=== PATIENT | female | born 1980 | race Hispanic/Latino ===

== ENCOUNTER 2017-02-01 18:24 | Emergency (ER) | payer SELFPAY ==
[2017-02-01] MEDS ORDERED: diphenhydrAMINE 50 MG/ML VIAL ONE (20:18)
[2017-02-01] MEDS ORDERED: Metoclopramide HCl 10 MG/2 ML VIAL ONE (20:18)
[2017-02-01] MEDS ORDERED: Lidocaine 4% Cream 5 GM TUBE w/ Tegaderm ONE (21:00)
== END 2017-02-01 22:38 | disposition home or self-care (01) ==
LOC: ERS 18:24
DX: R51 Headache (principal); F32.9 Major depressive disorder, single episode, unspecified; F41.9 Anxiety disorder, unspecified; L40.9 Psoriasis, unspecified
CPT/HCPCS: 96374; 96375; J1200; J2765

== ENCOUNTER 2017-03-21 13:11 | Outpatient (CLI) | payer MEDICAID | END 2017-03-21 13:12 | disposition home or self-care (01) | LOC: BICULT 13:11 | PROVIDERS: ATTEND Nurse Practitioner Women's Health | DX: R10.2 Pelvic and perineal pain (principal); N88.8 Other specified noninflammatory disorders of cervix uteri | CPT/HCPCS: 76856 ==

== ENCOUNTER 2017-08-28 12:56 | Outpatient (CLI) | payer OTHER ==
--- NOTE | 2017-08-28 15:57 | ULT ---
GALLBLADDER ULTRASOUND: 08/28/17 Reference made to 10/23/12. INDICATION: Pain. FINDINGS: There is increased echogenicity of the hepatic parenchyma. There is no acute gallbladder pathology. N o evidence of ascites. Common duct is normal at 3 mm in diameter. IMPRESSION: 1. Findings most consistent with hepatic steatosis. 2. No acute gallbladder pathology. POS: [facility]
== END 2017-08-28 12:57 | disposition home or self-care (01) ==
LOC: ULT 12:56
PROVIDERS: ATTEND Family Medicine
DX: R74.8 Abnormal levels of other serum enzymes (principal)
CPT/HCPCS: 76705

== ENCOUNTER 2017-10-17 07:58 | Day surgery (SDC) | payer OTHER ==
[2017-10-16 13:30] VITALS: BMI 36.8
[2017-10-17 08:26] LABS: #Basophils 0.1 thou/uL (0.0-0.2); #Eosinphils 0.2 thou/uL (0.0-0.7); #Lymphocytes 1.7 thou/uL (1.20-3.40); #Monocytes 0.4 thou/uL (0.11-0.59); #Neutrophils 3.4 thou/uL (1.40-6.50); %Basophils 0.9 % (0.0-1.0); %Neutrophils 59.1 % (42.0-75.0); Mean Corpuscular HGB CONC 34.7 g/dL (32.0-36.0); Mean Corpuscular Hemoglobin 32.1 pg (27.0-31.0); Mean Corpuscular Volume 92.3 fL (78.0-98.0); Mean Platelet Volume 7.2 fL (7.4-10.4); Platelet Count 260 thou/uL (130-400); RBC Distribution Width 11.5 % (11.5-14.5); Red Blood Cell (RBC) Count 4.06 mill/uL (4.20-5.40); White Blood Cell (WBC) Count 5.7 thou/uL (4.8-10.8)
[2017-10-17 08:53] LABS: PTT 29.6 SEC (22.9-36.1); Prothrombin Time 12.8 SEC (12.0-14.7)
[2017-10-17] MEDS ORDERED: Lidocaine 1% MPF 2 ML VIAL ONE (09:14)
[2017-10-17] MEDS ORDERED: Sodium Bicarbonate 2.5 MEQ/5 ML VIAL ONE (09:14)
[2017-10-17] MEDS ORDERED: Midazolam HCl 2 mg/2 ml Vial ONE (09:15)
[2017-10-17] MEDS ORDERED: Fentanyl 100 MCG/2 ML VIAL ONE (09:16)
--- NOTE | 2017-10-17 16:01 | ULT ---
ULTRASOUND GUIDED HEPATIC BIOPSY: Date: 10-17-17 History: Elevated liver function tests. Technique: The procedure including risks and complications were explained to the patient and informed consent wa s obtained. The patient was placed on the sonography table in the supine position. Limited sonographi c evaluation of the liver was performed. An area in the midaxillary line right upper quadrant was mar ked and then meticulously prepped and draped in the usual sterile fashion. Skin and subcutaneous tissues were infiltrated with buffered 1% Lidocaine for local anesthesia. Small skin incision was made. Utilizing concurrent real-time ultrasound guidance, a 17 gauge guide needle was advanced into the most peripheral aspect of the right hepatic lobe. Utilizing coaxial technique, 18 gauge core biopsy needle was placed, and a single approximately 2 cm 18 gauge core needle bi opsy specimen was obtained. Needle was removed and inter stylet was replaced. Adequate specimen was n oted. Hemostatis was achieved with direct pressure for approximately 10 minutes. Post procedure sonog juan ramon demonstrates no free fluid adjacent to the liver or evidence of a hematoma. Patient did have a br ief episode of pain post procedure but this quickly resolved and the patient's vital signs remained s table post procedure as well as in Radiology nurses holding area during recovery. Dry sterile dressing was placed at catheter entry site. Patient was placed in the right lateral decub itus position for 1 hour. Patient was monitored in the Radiology nurses holding area for approximatel y 3 hours without further complication and was discharged in stable condition. IMPRESSION: 1. Technically successful ultrasound guided random right hepatic lobe biopsy. Pathology is pending. 2. Hepatic steatosis which was noted on right upper quadrant ultrasound 08-28-17. POS: [facility]
== END 2017-10-17 13:30 | disposition home or self-care (01) ==
LOC: ULT 07:58
PROVIDERS: ATTEND Internal Medicine
PROC: 0FB13ZX Excision of Right Lobe Liver, Percutaneous Approach, Diagnostic (ICD-10-PCS; principal; 2017-10-17)
DX: K73.9 Chronic hepatitis, unspecified (principal); Z88.6 Allergy status to analgesic agent; J45.909 Unspecified asthma, uncomplicated
CPT/HCPCS: 36415; 47000; 76942; 85025; 85610; 85730; 88307; 88313; J2250; J3010

== ENCOUNTER 2017-11-22 22:47 | Emergency (ER) | payer SELFPAY ==
[2017-11-23 00:12] LABS: #Eosinphils 0.2 thou/uL (0.0-0.7); #Lymphocytes 1.9 thou/uL (1.20-3.40); #Monocytes 0.4 thou/uL (0.11-0.59); #Neutrophils 3.5 thou/uL (1.40-6.50); %Basophils 0.7 % (0.0-1.0); %Eosinophils 2.5 % (0.0-10.0); %Lymphocytes 31.4 % (21.0-51.0); %Neutrophils 58.4 % (42.0-75.0); Hemoglobin 12.6 g/dL (12.0-16.0); Mean Corpuscular HGB CONC 33.8 g/dL (32.0-36.0); Mean Corpuscular Hemoglobin 31.5 pg (27.0-31.0); Mean Corpuscular Volume 93.2 fL (78.0-98.0); Mean Platelet Volume 7.3 fL (7.4-10.4); Platelet Count 250 thou/uL (130-400); RBC Distribution Width 11.5 % (11.5-14.5); Red Blood Cell (RBC) Count 3.99 mill/uL (4.20-5.40)
[2017-11-23 00:34] LABS: ALT (SGPT) 192 U/L (8-55); AST (SGOT) 94 U/L (5-34); Albumin 3.8 g/dL (3.5-5.0); Alkaline Phosphatase 69 U/L (40-150); Anion Gap 12 mmol/L (10-20); BUN (Urea Nitrogen) 14 mg/dL (7.0-18.7); Bilirubin, Total 0.5 mg/dL (0.2-1.2); Calc. Creatinine Clearance 0 mL/min (70-130); Calcium 8.9 mg/dL (7.8-10.44); Carbon Dioxide 23 mmol/L (22-29); Chloride 104 mmol/L (98-107); Estimated GFR-MDRD Greater than 90; Globulin 3.2 g/dL (2.4-3.5); Glucose 158 mg/dL (70-105); Potassium 3.7 mmol/L (3.5-5.1); Sodium 135 mmol/L (136-145)
[2017-11-23 00:37] LABS: CKMB 0.9 ng/mL (0-6.6); Troponin I Less than 0.010 ng/mL (< 0.028)
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
== END 2017-11-23 01:32 | disposition home or self-care (01) ==
LOC: ERS 22:47
DX: R07.89 Other chest pain (principal); R74.0 Nonspecific elevation of levels of transaminase and lactic acid dehydrogenase [LDH]; G43.909 Migraine, unspecified, not intractable, without status migrainosus; F41.9 Anxiety disorder, unspecified; F32.9 Major depressive disorder, single episode, unspecified; Z79.899 Other long term (current) drug therapy
CPT/HCPCS: 36415; 71046; 80053; 82553; 84484; 85025; 93005; 94760

== ENCOUNTER 2018-07-25 19:41 | Emergency (ER) | payer SELFPAY ==
[~2018-07-25 19:41] MED LIST: ISOVUE-370 76%-LOCM 1 ML ONE
[2018-07-25] MEDS ORDERED: Ondansetron PF 4 MG/2 ML Vial ONE ×2 (20:39→20:50)
[2018-07-25] MEDS ORDERED: Morphine 4 MG/ML VIAL ONE (20:39)
[2018-07-25 20:41] LABS: #Lymphocytes 0.9 thou/uL (1.20-3.40); #Monocytes 0.5 thou/uL (0.11-0.59); #Neutrophils 10.6 thou/uL (1.40-6.50); %Basophils 0.3 % (0.0-1.0); %Eosinophils 0.3 % (0.0-10.0); %Lymphocytes 7.1 % (21.0-51.0); %Monocytes 4.1 % (0.0-10.0); %Neutrophils 88.3 % (42.0-75.0); Hemoglobin 13.1 g/dL (12.0-16.0); Mean Corpuscular HGB CONC 34.6 g/dL (32.0-36.0); Mean Corpuscular Hemoglobin 32.1 pg (27.0-31.0); Mean Corpuscular Volume 92.8 fL (78.0-98.0); Mean Platelet Volume 7.4 fL (7.4-10.4); Platelet Count 207 thou/uL (130-400); RBC Distribution Width 11.7 % (11.5-14.5)
[2018-07-25 20:56] LABS: ALT (SGPT) 16 U/L (8-55); AST (SGOT) 13 U/L (5-34); Albumin 4.1 g/dL (3.5-5.0); Alkaline Phosphatase 63 U/L (40-150); Anion Gap 14 mmol/L (10-20); BUN (Urea Nitrogen) 10 mg/dL (7.0-18.7); Calc. Creatinine Clearance 0 mL/min (70-130); Calcium 8.9 mg/dL (7.8-10.44); Carbon Dioxide 23 mmol/L (22-29); Chloride 101 mmol/L (98-107); Estimated GFR-MDRD 81; Globulin 3.2 g/dL (2.4-3.5); Glucose 99 mg/dL (70-105); Lipase 8 U/L (8-78); Potassium 3.8 mmol/L (3.5-5.1); Protein, Total 7.3 g/dL (6.0-8.3); Sodium 134 mmol/L (136-145)
[2018-07-25 21:07] LABS: Bilirubin Negative (Negative); Blood, Urine Negative (Negative); Clarity Clear (Clear); Glucose, Urine (Dipstick) Negative (Negative); Leukocyte Negative (Negative); Nitrite Negative (Negative); Protein, Urine (Dipstick) > or equal to 300 mg/dL (Neg-Trace); Urobilinogen 0.2 mg/dL (0.2-1.0)
[2018-07-25 21:09] LABS: Pregnancy Test - Urine (BHCG) Negative (Negative); Pregu Control Background? CLEAR/WHITE (CLR/WHITE); Pregu Control Bar Appear? YES (CONTROL BAR); pH, Urine 8.5 (5.0-9.0)
[2018-07-25 21:10] LABS: RBC/HPF 0-3 HPF (0-3); WBC/HPF 0-3 HPF (0-3)
[2018-07-25 21:11] LABS: Bacteria/HPF Rare-Few HPF (None Seen); Hyaline Casts/LPF 0-3 HYALINE CAST LPF (0-3 Hyaline)
--- NOTE | 2018-07-25 22:21 | CT ---
CT OF ABDOMEN AND PELVIS PERFORMED WITH CONTRAST ENHANCEMENT: 07/25/18 HISTORY: Abdominal pain, cramping, vomiting, diarrhea, fever. COMPARISON: 01/16/15 exam. The lung bases are clear. The liver shows suggestion of some fatty change. The spleen, pancreas and gallbladder regions appear unremarkable. Right and left adrenal glands and right and left kidneys are normal are appearance. There is bowel wa ll edema change involving the ascending colon. The transverse colon is decompressed, somewhat difficu lt to assess for wall thickening. There may be some slight wall thickening present in this region. Th e descending colon is completely decompressed without any definite signs for colitis. No pneumatosis is identified. CT OF PELVIS PERFORMED WITH CONTRAST ENHANCEMENT: The appendix is normal. There is no adenopathy or mass. No free fluid. Slightly irregular enhancing f ollicle is seen involving the left ovary. IMPRESSION: Findings suggesting colitis of the ascending and possibly transverse colon. Changes could be on the i schemic basis or related to inflammatory or infectious processes. POS: [facility]
[2018-07-25] MEDS ORDERED: metroNIDAZOLE 250 MG TAB ONE (22:50)
== END 2018-07-25 23:24 | disposition home or self-care (01) ==
LOC: ERS 19:41
DX: K52.9 Noninfective gastroenteritis and colitis, unspecified (principal); R11.2 Nausea with vomiting, unspecified; R50.9 Fever, unspecified; F41.9 Anxiety disorder, unspecified; F32.9 Major depressive disorder, single episode, unspecified; Z79.899 Other long term (current) drug therapy
CPT/HCPCS: 36415; 74177; 80053; 81003; 81015; 81025; 83605; 83690; 85025; 87040; 96361; 96374; 96375; J2270; J2405

== ENCOUNTER 2018-11-11 15:34 | Emergency (ER) | payer SELFPAY ==
[2018-11-11] MEDS ORDERED: HYDROcodone/Acetaminophen 5/325 mg Tablet ONE (17:07)
--- NOTE | 2018-11-11 17:41 | ULT ---
US Venous Doppler Rt Unilat History: Pain Comparison: None. Findings: Real-time grayscale, color, and spectral analysis of the right lower extremity venous syste m was performed. The common femoral, femoral, proximal portions greater saphenous and deep femoral veins as well as th e popliteal and posterior tibial veins were interrogated. Normal flow, augmentation, and compression. The area of pain is a complex likely retracting hematoma at the medial lower leg measuring up to 8 cm . Impression: 1. No deep venous thrombosis. 2. Likely a retracting hematoma measuring up to 8 cm area of interest. If no clinical improvement in 2-3 weeks, MRI with and without contrast recommended.
[2018-11-11 18:02] LABS: #Basophils 0.1 thou/uL (0.0-0.2); #Eosinphils 0.2 thou/uL (0.0-0.7); #Lymphocytes 2.1 thou/uL (1.20-3.40); #Monocytes 0.5 thou/uL (0.11-0.59); #Neutrophils 4.1 thou/uL (1.40-6.50); %Basophils 1.2 % (0.0-1.0); %Eosinophils 2.7 % (0.0-10.0); %Lymphocytes 30.4 % (21.0-51.0); %Monocytes 6.4 % (0.0-10.0); %Neutrophils 59.3 % (42.0-75.0); Mean Corpuscular HGB CONC 34.4 g/dL (32.0-36.0); Mean Corpuscular Hemoglobin 32.1 pg (27.0-31.0); Mean Corpuscular Volume 93.3 fL (78.0-98.0); Mean Platelet Volume 6.9 fL (7.4-10.4); Platelet Count 260 thou/uL (130-400); RBC Distribution Width 11.9 % (11.5-14.5); Red Blood Cell (RBC) Count 4.05 mill/uL (4.20-5.40)
[2018-11-11 18:25] LABS: ALT (SGPT) 21 U/L (8-55); AST (SGOT) 17 U/L (5-34); Alkaline Phosphatase 59 U/L (40-110); Anion Gap 10 mmol/L (10-20); BUN (Urea Nitrogen) 13 mg/dL (7.0-18.7); Bilirubin, Total 0.5 mg/dL (0.2-1.2); Calc. Creatinine Clearance 0 mL/min (70-130); Calcium 9.1 mg/dL (7.8-10.44); Carbon Dioxide 26 mmol/L (22-29); Chloride 105 mmol/L (98-107); Estimated GFR-MDRD 87; Globulin 3.2 g/dL (2.4-3.5); Glucose 109 mg/dL (70-105); Potassium 3.7 mmol/L (3.5-5.1); Protein, Total 7.2 g/dL (6.0-8.3); Sodium 137 mmol/L (136-145)
== END 2018-11-11 18:49 | disposition home or self-care (01) ==
LOC: ERS 15:34
DX: S80.11XA Contusion of right lower leg, initial encounter (principal); G43.909 Migraine, unspecified, not intractable, without status migrainosus; F41.9 Anxiety disorder, unspecified; F32.9 Major depressive disorder, single episode, unspecified; W03.XXXA Other fall on same level due to collision with another person, initial encounter; Y93.66 Activity, soccer
CPT/HCPCS: 36415; 80053; 85025; 85379

== ENCOUNTER 2018-12-22 20:34 | Emergency (ER) | payer SELFPAY ==
[2018-12-22] MEDS ORDERED: Ketorolac Tromethamine 30 MG/ML VIAL ONE (20:53)
[2018-12-22] MEDS ORDERED: Morphine 4 MG/ML VIAL ONE (20:53)
[2018-12-22] MEDS ORDERED: Ondansetron PF 4 MG/2 ML Vial ONE (21:03)
[2018-12-22 21:09] LABS: #Eosinphils 0.2 thou/uL (0.0-0.7); #Lymphocytes 2.4 thou/uL (1.20-3.40); #Monocytes 0.5 thou/uL (0.11-0.59); %Basophils 0.7 % (0.0-1.0); %Eosinophils 2.7 % (0.0-10.0); %Lymphocytes 34.1 % (21.0-51.0); %Monocytes 6.3 % (0.0-10.0); %Neutrophils 56.2 % (42.0-75.0); Hemoglobin 12.8 g/dL (12.0-16.0); Mean Corpuscular HGB CONC 34.3 g/dL (32.0-36.0); Mean Corpuscular Hemoglobin 31.7 pg (27.0-31.0); Mean Corpuscular Volume 92.6 fL (78.0-98.0); Platelet Count 272 thou/uL (130-400); RBC Distribution Width 11.4 % (11.5-14.5); Red Blood Cell (RBC) Count 4.02 mill/uL (4.20-5.40); White Blood Cell (WBC) Count 7.1 thou/uL (4.8-10.8)
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
[2018-12-22 21:39] LABS: ALT (SGPT) 24 U/L (8-55); AST (SGOT) 19 U/L (5-34); Albumin 4.3 g/dL (3.5-5.0); Alkaline Phosphatase 64 U/L (40-110); Anion Gap 11 mmol/L (10-20); BUN (Urea Nitrogen) 17 mg/dL (7.0-18.7); Bilirubin, Total 0.4 mg/dL (0.2-1.2); Calc. Creatinine Clearance 0 mL/min (70-130); Calcium 9.4 mg/dL (7.8-10.44); Carbon Dioxide 25 mmol/L (22-29); Chloride 104 mmol/L (98-107); Estimated GFR-MDRD 88; Globulin 3.1 g/dL (2.4-3.5); Glucose 99 mg/dL (70-105); Protein, Total 7.4 g/dL (6.0-8.3); Sodium 136 mmol/L (136-145)
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
--- NOTE | 2018-12-22 21:54 | RAD ---
PORTABLE CHEST ONE VIEW: Date: 12-22-18 Time: 8:44 p.m. History: Chest pain. FINDINGS: Comparison is made with exam of 11-23-17. The heart size is normal. The lungs are well expanded without lobar consolidation, pneumothoraces or pleural effusions. IMPRESSION: No radiographic evidence of acute cardiopulmonary process. POS: [facility]
[2018-12-22] MEDS ORDERED: HYDROcodone/Acetaminophen 10/325 mg Tablet ONE (23:21)
== END 2018-12-22 23:25 | disposition home or self-care (01) ==
LOC: ERS 20:34
DX: S06.0X9A Concussion with loss of consciousness of unspecified duration, initial encounter (principal); S80.01XA Contusion of right knee, initial encounter; M25.519 Pain in unspecified shoulder; G43.909 Migraine, unspecified, not intractable, without status migrainosus; F41.9 Anxiety disorder, unspecified; F32.9 Major depressive disorder, single episode, unspecified; V43.52XA Car driver injured in collision with other type car in traffic accident, initial encounter
CPT/HCPCS: 70450; 71045; 80053; 85025; 96374; 96375; J1885; J2270; J2405

== ENCOUNTER 2019-04-09 11:11 | Emergency (ER) | payer OTHER, SELFPAY ==
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
== END 2019-04-09 12:23 | disposition home or self-care (01) ==
LOC: ERS 11:11
DX: S46.912A Strain of unspecified muscle, fascia and tendon at shoulder and upper arm level, left arm, initial encounter (principal); G43.909 Migraine, unspecified, not intractable, without status migrainosus; F41.9 Anxiety disorder, unspecified; F32.9 Major depressive disorder, single episode, unspecified; Z79.899 Other long term (current) drug therapy; V89.2XXA Person injured in unspecified motor-vehicle accident, traffic, initial encounter

== ENCOUNTER 2019-04-16 13:56 | Outpatient (CLI) | payer OTHER ==
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
== END 2019-04-16 13:57 | disposition home or self-care (01) ==
LOC: BICMRI 13:56
PROVIDERS: ATTEND Nurse Practitioner Family
DX: M25.561 Pain in right knee (principal); M25.512 Pain in left shoulder; S83.241A Other tear of medial meniscus, current injury, right knee, initial encounter; M94.28 Chondromalacia, other site; M71.38 Other bursal cyst, other site; M89.512 Osteolysis, left shoulder; M75.82 Other shoulder lesions, left shoulder; S46.812A Strain of other muscles, fascia and tendons at shoulder and upper arm level, left arm, initial encounter; M85.612 Other cyst of bone, left shoulder

== ENCOUNTER 2019-06-21 15:59 | Emergency (ER) | payer SELFPAY | END 2019-06-21 16:20 | disposition home or self-care (01) | LOC: MERGE 15:59 → ERS 15:59 | DX: T78.40XA Allergy, unspecified, initial encounter (principal); H57.89 Other specified disorders of eye and adnexa; R09.81 Nasal congestion; E78.00 Pure hypercholesterolemia, unspecified; J45.909 Unspecified asthma, uncomplicated; F41.9 Anxiety disorder, unspecified; F32.9 Major depressive disorder, single episode, unspecified | CPT/HCPCS: 99283 ==

== ENCOUNTER 2019-07-30 04:20 | Emergency (ER) | payer OTHER, SELFPAY ==
[2019-07-30] MEDS ORDERED: Ketorolac Tromethamine 30 MG/ML VIAL ONE (04:38)
[2019-07-30 04:45] LABS: #Basophils 0.1 thou/uL (0.0-0.2); #Eosinphils 0.2 thou/uL (0.0-0.7); #Lymphocytes 1.8 thou/uL (1.20-3.40); #Monocytes 0.6 thou/uL (0.11-0.59); #Neutrophils 5.5 thou/uL (1.40-6.50); %Basophils 0.9 % (0.0-1.0); %Eosinophils 2.1 % (0.0-10.0); %Lymphocytes 21.8 % (21.0-51.0); %Monocytes 7.3 % (0.0-10.0); %Neutrophils 67.9 % (42.0-75.0); Hemoglobin 12.9 g/dL (12.0-16.0); Mean Corpuscular Hemoglobin 31.1 pg (27.0-31.0); Mean Corpuscular Volume 91.5 fL (78.0-98.0); Mean Platelet Volume 7.5 fL (7.4-10.4); Platelet Count 309 thou/uL (130-400); RBC Distribution Width 11.7 % (11.5-14.5); Red Blood Cell (RBC) Count 4.14 mill/uL (4.20-5.40); White Blood Cell (WBC) Count 8.2 thou/uL (4.8-10.8)
[2019-07-30 05:07] LABS: ALT (SGPT) 22 U/L (8-55); AST (SGOT) 16 U/L (5-34); Alkaline Phosphatase 67 U/L (40-110); Anion Gap 10 mmol/L (10-20); BUN (Urea Nitrogen) 9 mg/dL (7.0-18.7); Bilirubin, Total 0.2 mg/dL (0.2-1.2); Calc. Creatinine Clearance 0 mL/min (70-130); Calcium 9.2 mg/dL (7.8-10.44); Carbon Dioxide 25 mmol/L (22-29); Chloride 105 mmol/L (98-107); Estimated GFR-MDRD Greater than 90; Globulin 3.2 g/dL (2.4-3.5); Glucose 108 mg/dL (70-105); Lipase 19 U/L (8-78); Potassium 3.6 mmol/L (3.5-5.1); Protein, Total 7.2 g/dL (6.0-8.3); Sodium 136 mmol/L (136-145)
[2019-07-30 05:23] LABS: Bilirubin Negative (Negative); Blood, Urine Negative (Negative); Clarity Clear (Clear); Glucose, Urine (Dipstick) Normal (Negative); Leukocyte Negative Leu/uL (Negative); Nitrite Negative (Negative); Protein, Urine (Dipstick) Negative (Neg-Trace); Urobilinogen Normal mg/dL (Less than 2)
[2019-07-30 05:25] LABS: Pregnancy Test - Urine (BHCG) Negative (Negative); Pregu Control Background? CLEAR/WHITE (CLR/WHITE); Pregu Control Bar Appear? YES (CONTROL BAR); Specific Gravity 1.012 (1.002-1.036)
[2019-07-30] MEDS ORDERED: Ondansetron PF 4 MG/2 ML Vial ONE (05:50)
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
[2019-07-30] MEDS ORDERED: Iopamidol-370 76% 500 ML 1 ML ONE (15:39)
[2019-07-31 12:27] LABS: SARS-CoV-2 MS2 Positive; SARS-CoV-2 N Gene Positive; SARS-CoV-2 S Gene Positive; SARS-CoV-2 orf1ab Positive
== END 2019-07-30 06:37 | disposition home or self-care (01) ==
LOC: ERS 04:20
DX: U07.1 COVID-19 (principal); K57.32 Diverticulitis of large intestine without perforation or abscess without bleeding; G43.909 Migraine, unspecified, not intractable, without status migrainosus; F41.9 Anxiety disorder, unspecified; F32.9 Major depressive disorder, single episode, unspecified
CPT/HCPCS: 74177; 80053; 81003; 81025; 83690; 85025; 87635; 96374; 96375; J1885; J2405; Q9967; U0003

== ENCOUNTER 2020-06-27 20:10 | Emergency (ER) | payer OTHER, SELFPAY ==
[~2020-06-27 20:10] MED LIST changes: -ISOVUE-370 76%-LOCM 1 ML ONE; +Iopamidol-370 76% 500 ML 1 ML ONE
[2020-06-27 20:45] LABS: #Eosinphils 0.1 thou/uL (0.0-0.7); #Lymphocytes 1.8 thou/uL (1.20-3.40); #Monocytes 0.6 thou/uL (0.11-0.59); %Basophils 0.5 % (0.0-1.0); %Eosinophils 1.2 % (0.0-10.0); %Lymphocytes 23.7 % (21.0-51.0); %Monocytes 7.5 % (0.0-10.0); %Neutrophils 67.1 % (42.0-75.0); Hemoglobin 11.9 g/dL (12.0-16.0); Mean Corpuscular HGB CONC 34.8 g/dL (32.0-36.0); Mean Corpuscular Hemoglobin 32.5 pg (27.0-31.0); Mean Corpuscular Volume 93.4 fL (78.0-98.0); Platelet Count 294 thou/uL (130-400); RBC Distribution Width 11.6 % (11.5-14.5); Red Blood Cell (RBC) Count 3.67 mill/uL (4.20-5.40); White Blood Cell (WBC) Count 7.5 thou/uL (4.8-10.8)
[2020-06-27] MEDS ORDERED: Morphine 4 MG/ML VIAL ONE (21:05)
[2020-06-27] MEDS ORDERED: Ondansetron PF 4 MG/2 ML Vial ONE (21:05)
[2020-06-27 21:10] LABS: ALT (SGPT) 14 U/L (8-55); AST (SGOT) 13 U/L (5-34); Albumin 3.8 g/dL (3.5-5.0); Alkaline Phosphatase 58 U/L (40-110); Anion Gap 12 mmol/L (10-20); BUN (Urea Nitrogen) 14 mg/dL (7.0-18.7); Bilirubin, Total 0.3 mg/dL (0.2-1.2); CK (CPK) 69 U/L (29-168); Calc. Creatinine Clearance 0 mL/min (70-130); Calcium 8.7 mg/dL (7.8-10.44); Carbon Dioxide 24 mmol/L (22-29); Chloride 106 mmol/L (98-107); Globulin 2.8 g/dL (2.4-3.5); Glucose 114 mg/dL (70-105); Magnesium 1.9 mg/dL (1.6-2.6); Potassium 3.9 mmol/L (3.5-5.1); Protein, Total 6.6 g/dL (6.0-8.3); Sodium 138 mmol/L (136-145)
[2020-06-27] MEDS ORDERED: Ketorolac Tromethamine 30 MG/ML VIAL ONE (22:52)
[2020-06-27] MEDS ORDERED: Lorazepam 2 MG/ML VIAL ONE (22:52)
== END 2020-06-28 00:13 | disposition home or self-care (01) ==
LOC: ERS 20:10
DX: R07.89 Other chest pain (principal); G43.909 Migraine, unspecified, not intractable, without status migrainosus
CPT/HCPCS: 36415; 71045; 71275; 74174; 80053; 82550; 83735; 84484; 85025; 93005; 96374; 96375; J1885; J2060; J2270; J2405; Q9967

== ENCOUNTER 2020-10-30 23:39 | Emergency (ER) | payer SELFPAY ==
[2020-10-31] MEDS ORDERED: diphenhydrAMINE 25 MG CAP ONE (00:25)
== END 2020-10-31 01:00 | disposition home or self-care (01) ==
LOC: ERS 23:39
DX: J30.81 Allergic rhinitis due to animal (cat) (dog) hair and dander (principal)
CPT/HCPCS: 99283; Q0163

== ENCOUNTER 2020-11-30 16:41 | Inpatient (IN) | payer SELFPAY ==
[2020-11-30] MEDS ORDERED: Ketorolac Tromethamine 30 MG/ML VIAL ONE (17:21)
[2020-11-30] MEDS ORDERED: Ondansetron PF 4 MG/2 ML Vial ONE ×2 (17:21→19:49)
[2020-11-30] MEDS ORDERED: Morphine 4 MG/ML VIAL ONE ×2 (17:21→19:49)
[2020-11-30] MEDS ORDERED: cefTRIAXone\\ROCEPHIN 2 GM VIAL ONE (17:21)
[2020-11-30 17:22] LABS: #Eosinphils 0.1 thou/uL (0.0-0.7); #Lymphocytes 0.6 thou/uL (1.20-3.40); #Monocytes 0.2 thou/uL (0.11-0.59); #Neutrophils 10.3 thou/uL (1.40-6.50); %Basophils 0.1 % (0.0-1.0); %Eosinophils 0.7 % (0.0-10.0); %Lymphocytes 5.4 % (21.0-51.0); %Monocytes 1.8 % (0.0-10.0); Hemoglobin 11.7 g/dL (12.0-16.0); Mean Corpuscular HGB CONC 32.8 g/dL (32.0-36.0); Mean Corpuscular Volume 91.5 fL (78.0-98.0); Mean Platelet Volume 7.3 fL (7.4-10.4); Platelet Count 216 thou/uL (130-400); RBC Distribution Width 11.6 % (11.5-14.5); Red Blood Cell (RBC) Count 3.89 mill/uL (4.20-5.40); White Blood Cell (WBC) Count 11.2 thou/uL (4.8-10.8)
[2020-11-30 17:42] LABS: ALT (SGPT) 19 U/L (8-55); AST (SGOT) 20 U/L (5-34); Albumin 3.9 g/dL (3.5-5.0); Alkaline Phosphatase 111 U/L (40-110); Anion Gap 15 mmol/L (10-20); BUN (Urea Nitrogen) 9 mg/dL (7.0-18.7); Bilirubin, Total 0.8 mg/dL (0.2-1.2); Calc. Creatinine Clearance 0 mL/min (70-130); Calcium 8.6 mg/dL (7.8-10.44); Carbon Dioxide 22 mmol/L (22-29); Chloride 102 mmol/L (98-107); Globulin 3.2 g/dL (2.4-3.5); Glucose 128 mg/dL (70-105); Potassium 3.2 mmol/L (3.5-5.1); Protein, Total 7.1 g/dL (6.0-8.3); Sodium 136 mmol/L (136-145)
[2020-11-30 18:21] LABS: Bilirubin Negative (Negative); Blood, Urine 1+ (Negative); Clarity Turbid (Clear); Glucose, Urine (Dipstick) 100 mg/dL (Negative); Ketone, Urine Trace mg/dL (Negative); Leukocyte 500 Leu/uL (Negative); Nitrite 1+ (Negative); Protein, Urine (Dipstick) 50 mg/dL (Neg-Trace); Specific Gravity, Urine 1.017 (1.002-1.036); pH, Urine 6.5 (5.0-9.0)
[2020-11-30 18:29] LABS: Pregnancy Test - Urine (BHCG) Negative (Negative); Pregu Control Background? CLEAR/WHITE (CLR/WHITE); Pregu Control Bar Appear? YES (CONTROL BAR); Specific Gravity 1.017 (1.002-1.036)
[2020-11-30 18:33] LABS: Bacteria/HPF 2+ HPF (None Seen); Squamous Epithelial 0-3 HPF (0-3)
[2020-11-30 21:46] VITALS: BMI 29.9
[2020-11-30] MEDS ORDERED: Ondansetron ODT 4 MG TAB SL PRN (22:00)
[2020-11-30] MEDS ORDERED: Ondansetron PF 4 MG/2 ML Vial IVP PRN (22:00)
[2020-11-30] MEDS ORDERED: Acetaminophen 325 MG TAB PO PRN (22:00)
[2020-11-30] MEDS ORDERED: HYDROcodone/Acetaminophen 5/325 mg Tablet PO PRN (23:26)
[2020-11-30] MEDS ORDERED: Morphine 2 MG/ML VIAL SLOW IVP PRN (23:27)
[2020-11-30] MEDS ORDERED: Electrolyte Replacement Protocol 1 EACH FS PRN (23:30)
[2020-11-30] MEDS ORDERED: Potassium Chloride 20 MEQ TAB PO SCH (23:30)
[2020-11-30] MEDS ORDERED: Vancomycin HCl 1.5 GM in Sodium Chloride 0.9% 250 ML 300 ML IVPB SCH (23:45)
[2020-11-30] MEDS ORDERED: Piperacillin/Tazobactam 3.375 GM in Sodium Chloride 0.9% 100 ML IVPB SCH (23:45)
[2020-12-01] MEDS: Sodium Chloride 0.9% 1,000 ML IV SCH ×2 (00:09→13:57)
[2020-12-01] MEDS: Piperacillin/Tazobactam 3.375 GM in Sodium Chloride 0.9% 100 ML IVPB SCH ×3 (04:37→20:04)
[2020-12-01] MEDS: Morphine 4 MG/ML VIAL SLOW IVP PRN ×2 (05:04→15:37)
[2020-12-01 07:15] LABS: #Eosinphils 0.1 thou/uL (0.0-0.7); #Lymphocytes 0.9 thou/uL (1.20-3.40); #Monocytes 0.4 thou/uL (0.11-0.59); #Neutrophils 7.5 thou/uL (1.40-6.50); %Basophils 0.2 % (0.0-1.0); %Eosinophils 1.1 % (0.0-10.0); %Lymphocytes 10.2 % (21.0-51.0); %Neutrophils 83.5 % (42.0-75.0); Hemoglobin 9.4 g/dL (12.0-16.0); Mean Corpuscular HGB CONC 33.3 g/dL (32.0-36.0); Mean Corpuscular Volume 93.1 fL (78.0-98.0); Mean Platelet Volume 7.8 fL (7.4-10.4); Platelet Count 134 thou/uL (130-400); RBC Distribution Width 11.7 % (11.5-14.5); Red Blood Cell (RBC) Count 3.03 mill/uL (4.20-5.40); White Blood Cell (WBC) Count 8.9 thou/uL (4.8-10.8)
[2020-12-01 07:31] LABS: Anion Gap 11 mmol/L (10-20); BUN (Urea Nitrogen) 9 mg/dL (7.0-18.7); Calc. Creatinine Clearance 116 mL/min (70-130); Calcium 7.5 mg/dL (7.8-10.44); Carbon Dioxide 21 mmol/L (22-29); Chloride 107 mmol/L (98-107); Glucose 123 mg/dL (70-105); Potassium 3.7 mmol/L (3.5-5.1); Sodium 135 mmol/L (136-145)
[2020-12-01] MEDS: Enoxaparin Sodium 40 MG/0.4 ML SYRINGE SC SCH (08:13)
[2020-12-01 11:58] LABS: SARS-CoV-2 PCR by NAA Not Detected (NotDetected)
[2020-12-01] MEDS ORDERED: Vancomycin 1 GM in Premix Bag 1 BAG IVPB SCH (12:00)
[2020-12-01] MEDS ORDERED: Ondansetron ODT 4 MG TAB PO PRN (12:20)
[2020-12-01] MEDS ORDERED: Ondansetron PF 4 MG/2 ML Vial IVP PRN (12:21)
[2020-12-02] MEDS: Sodium Chloride 0.9% 1,000 ML IV SCH (01:41)
[2020-12-02] MEDS ORDERED: Floranex 1 GM Packet PO SCH (03:00)
[2020-12-02] MEDS: Piperacillin/Tazobactam 3.375 GM in Sodium Chloride 0.9% 100 ML IVPB SCH (03:05)
[2020-12-02] MEDS: Enoxaparin Sodium 40 MG/0.4 ML SYRINGE SC SCH (08:17)
[2020-12-02] MEDS ORDERED: LACTINEX 1 TAB PO SCH (09:00)
[2020-12-02 11:25] LABS: Vancomycin, Trough 2.3 ug/mL
[2020-12-02 12:10] VITALS: BP 156/78; TEMP 97.8
== END 2020-12-02 12:05 | disposition home or self-care (01) | DRG 872 ==
LOC: ERS 16:41 → T4-A 19:51
PROVIDERS: ADMIT Student in an Organized Health Care Education/Training Program; ATTEND Internal Medicine
DX: A41.51 Sepsis due to Escherichia coli [E. coli] (principal); N12 Tubulo-interstitial nephritis, not specified as acute or chronic; E87.6 Hypokalemia; F32.A Depression, unspecified; F41.9 Anxiety disorder, unspecified; Z20.822 Contact with and (suspected) exposure to COVID-19; L40.9 Psoriasis, unspecified; Z88.8 Allergy status to other drugs, medicaments and biological substances; Z98.51 Tubal ligation status
CPT/HCPCS: 36415; 74177; 80048; 80053; 80202; 81003; 81015; 81025; 83605; 83690; 85025; 87040; 87077; 87086; 87186; 94760; 96365; 96375; 96376; J0696; J1650; J1885; J2270; J2405; J2543; J3370; J3490; J7050; Q0162; Q9967; U0003; U0005

== ENCOUNTER 2021-07-05 10:10 | Outpatient (CLI) | payer OTHER | END 2021-07-05 10:11 | disposition home or self-care (01) | LOC: RAD 10:10 | PROVIDERS: ATTEND Dermatology | DX: L40.0 Psoriasis vulgaris (principal); Z79.899 Other long term (current) drug therapy | CPT/HCPCS: 71046 ==

== ENCOUNTER 2022-02-08 13:00 | Outpatient (CLI) | payer OTHER | END 2022-02-08 13:01 | disposition home or self-care (01) | LOC: MRI 13:00 | PROVIDERS: ATTEND Orthopaedic Surgery | DX: M51.16 Intervertebral disc disorders with radiculopathy, lumbar region (principal); M23.611 Other spontaneous disruption of anterior cruciate ligament of right knee; M22.41 Chondromalacia patellae, right knee; M25.461 Effusion, right knee; S83.411A Sprain of medial collateral ligament of right knee, initial encounter; M47.896 Other spondylosis, lumbar region; M47.897 Other spondylosis, lumbosacral region; Z98.890 Other specified postprocedural states | CPT/HCPCS: 72148 ==

== ENCOUNTER 2022-04-12 23:17 | Emergency (ER) | payer SELFPAY ==
[2022-04-13] MEDS ORDERED: diphenhydrAMINE 50 MG/ML VIAL ONE (00:11)
[2022-04-13] MEDS ORDERED: Metoclopramide HCl 10 MG/2 ML VIAL ONE (00:11)
[2022-04-13 00:47] LABS: #Eosinphils 0.1 thou/uL (0.0-0.7); #Lymphocytes 2.3 thou/uL (1.20-3.40); #Monocytes 0.5 thou/uL (0.11-0.59); #Neutrophils 4.5 thou/uL (1.40-6.50); %Basophils 0.2 % (0.0-1.0); %Eosinophils 1.8 % (0.0-10.0); %Lymphocytes 30.7 % (21.0-51.0); %Monocytes 6.6 % (0.0-10.0); %Neutrophils 60.7 % (42.0-75.0); Hemoglobin 11.6 g/dL (12.0-16.0); Mean Corpuscular HGB CONC 33.3 g/dL (32.0-36.0); Mean Corpuscular Volume 93.1 fl (78.0-98.0); Mean Platelet Volume 7.3 fL (7.4-10.4); Platelet Count 279 10x3/uL (130-400); RBC Distribution Width 11.7 % (11.5-14.5); Red Blood Cell (RBC) Count 3.75 mill/uL (4.20-5.40); White Blood Cell (WBC) Count 7.4 10x3/uL (4.8-10.8)
[2022-04-13 00:49] LABS: BHCG - Serum Negative (NEGATIVE); Pregs Control Background? CLEAR/WHITE (CLR/WHITE); Pregs Control Bar Appear? YES (CONTROL BAR)
[2022-04-13 00:58] LABS: Bilirubin Negative (Negative); Blood, Urine Negative (Negative); Clarity Clear (Clear); Glucose, Urine (Dipstick) Normal (Negative); Ketone, Urine Negative (Negative); Leukocyte Negative Leu/uL (Negative); Nitrite Negative (Negative); Protein, Urine (Dipstick) Negative (Neg-Trace); Specific Gravity, Urine 1.015 (1.002-1.036); Urobilinogen Normal mg/dL (Less than 2)
[2022-04-13 01:05] LABS: ALT (SGPT) 12 U/L (8-55); AST (SGOT) 15 U/L (5-34); Albumin 3.7 g/dL (3.5-5.0); Alkaline Phosphatase 53 U/L (40-110); Anion Gap 13 mmol/L (10-20); BUN (Urea Nitrogen) 12 mg/dL (7.0-18.7); Bilirubin, Total 0.4 mg/dL (0.2-1.2); Calc. Creatinine Clearance 0 mL/min (70-130); Calcium 8.6 mg/dL (7.8-10.44); Carbon Dioxide 22 mmol/L (22-29); Chloride 104 mmol/L (98-107); Estimated GFR 110; Globulin 2.6 g/dL (2.4-3.5); Glucose 93 mg/dL (70-105); Lipase 12 U/L (8-78); Potassium 3.6 mmol/L (3.5-5.1); Protein, Total 6.3 g/dL (6.0-8.3); Sodium 135 mmol/L (136-145)
== END 2022-04-13 02:28 | disposition home or self-care (01) ==
LOC: ERS 23:17
DX: R51.9 Headache, unspecified (principal); F17.290 Nicotine dependence, other tobacco product, uncomplicated
CPT/HCPCS: 70450; 80053; 81003; 83690; 84703; 85025; 87077; 87086; 87186; 93005; 96374; 96375; J1200; J2765

== ENCOUNTER 2023-12-24 12:01 | Emergency (ER) | payer SELFPAY ==
[2023-12-24 12:50] LABS: #Basophils Less than 0.03 10x3/uL (0.0-0.2); %Basophils 0.1 % (0.0-1.0); %Eosinophils 1.3 % (0.0-10.0); %Lymphocytes 14.3 % (21.0-51.0); %Monocytes 5.8 % (0.0-10.0); %Neutrophils 78.2 % (42.0-75.0); Hemoglobin 12.2 g/dL (12.0-16.0); Mean Corpuscular HGB CONC 33.9 g/dL (32.0-36.0); Mean Corpuscular Hemoglobin 30.7 pg (27.0-31.0); Mean Corpuscular Volume 90.5 fL (78.0-98.0); Mean Platelet Volume 9.3 fL (7.4-10.4); Platelet Count 284 10x3/uL (130-400); RBC Distribution Width 12.3 % (11.5-14.5); Red Blood Cell (RBC) Count 3.98 mill/uL (4.20-5.40)
[2023-12-24 13:06] LABS: ALT (SGPT) 33 U/L (8-55); AST (SGOT) 20 U/L (5-34); Albumin 3.7 g/dL (3.5-5.0); Alkaline Phosphatase 61 U/L (40-110); Anion Gap 13 mmol/L (10-20); BUN (Urea Nitrogen) 12 mg/dL (7.0-18.7); Bilirubin, Total 0.8 mg/dL (0.2-1.2); Calc. Creatinine Clearance 0 mL/min (70-130); Calcium 9.4 mg/dL (7.8-10.44); Carbon Dioxide 21 mmol/L (22-29); Chloride 105 mmol/L (98-107); Estimated GFR 109; Globulin 4.1 g/dL (2.4-3.5); Glucose 97 mg/dL (70-105); Potassium 3.8 mmol/L (3.5-5.1); Protein, Total 7.8 g/dL (6.0-8.3); Sodium 135 mmol/L (136-145)
[2023-12-24] MEDS ORDERED: Ondansetron PF 4 MG/2 ML Vial ONE (13:38)
[2023-12-24] MEDS ORDERED: Morphine 4 MG/ML VIAL ONE (13:38)
[2023-12-24 14:12] LABS: Bacteria/HPF None Seen HPF (None Seen); Bilirubin Negative (Negative); Blood, Urine Negative (Negative); CAUTI Indications for Culture Dysuria,urgency,freq; Clarity Clear (Clear); Glucose, Urine (Dipstick) Normal (Negative); Ketone, Urine Negative (Negative); Leukocyte Negative Leu/uL (Negative); Nitrite Negative (Negative); Pregnancy Test - Urine (BHCG) Negative (Negative); Protein, Urine (Dipstick) Negative (Neg-Trace); RBC/HPF 0-3 HPF (0-3); Specific Gravity, Urine 1.001 (1.002-1.036); Squamous Epithelial None Seen HPF (0-3); Urobilinogen Normal mg/dL (Less than 2); WBC/HPF None Seen HPF (0-3); pH, Urine 6.5 (5.0-9.0)
[2023-12-24 14:13] LABS: Pregu Control Background? CLEAR/WHITE (CLR/WHITE); Pregu Control Bar Appear? YES (CONTROL BAR); Specific Gravity 1.001 (1.002-1.036)
[2023-12-24 14:30] LABS: Urine Culture Reflex No No
[2023-12-24] MEDS ORDERED: Iopamidol-370 76% 500 ML MDV (1 ML CHARGE) ONE (15:29)
== END 2023-12-24 15:32 | disposition home or self-care (01) ==
LOC: ERS 12:01
DX: K57.92 Diverticulitis of intestine, part unspecified, without perforation or abscess without bleeding (principal); Z55.6 Problems related to health literacy
CPT/HCPCS: 36415; 74177; 80053; 80307; 81001; 81025; 85025; 96374; 96375; J2272; J2405; Q9967